=== PATIENT | male | born 1990 | race American Indian/Alaskan Native ===

== ENCOUNTER 2017-02-01 05:09 | Emergency (ER) | payer SELFPAY ==
[2017-02-01 05:32] VITALS: BP 129/87
== END 2017-02-02 05:44 | disposition left against medical advice (07) ==
LOC: ED 05:09
DX: K08.89 Other specified disorders of teeth and supporting structures (principal); R51 Headache; Z53.21 Procedure and treatment not carried out due to patient leaving prior to being seen by health care provider